=== PATIENT | male | born 1960 | race Caucasian/White ===

== ENCOUNTER 2022-05-12 12:06 | Emergency (ER) | payer OTHER ==
[~2022-05-12] VITALS: Ht 188 cm; Wt 113.4 kg
[2022-05-12 12:07] VITALS: BP_SYST 121
--- NOTE | 2022-05-12 12:31 | NUR ---
DR. PALMA AT BEDSIDE TO ASSESS PT.
--- NOTE | 2022-05-12 12:31 | NUR ---
PT BIBA ACLS FOR C/P, PT GIVEN NITRO SPRAY X2. PT IS AAOX4. PERRL. RESP E/U. ECG PENDING. DISTAL PULSES NORMAL. SKIN INTACT. PT HAS C/O N/V. ABDOMEN SOFT, NONTENDER, NONDISTENDED. IV CATH 18 RAC. SITE WNL. SIDERAILS UP X2.
[2022-05-12 12:35] LABS: BASOPHILS % (AUTO) 0.5 % (0.0-2.0); HEMOGLOBIN 15.2 g/dL (14.0-18.0); LYMPHOCYTES # (AUTO) 0.7 K/uL (1.0-5.5); MEAN CORPUSCULAR HEMOGLOBIN 34 pg (27-31); MEAN CORPUSCULAR HGB CONC 34 % (32-36); MEAN CORPUSCULAR VOLUME 100 fL (79.0-98.0); MONOCYTES # (AUTO) 0.2 K/uL (0.0-1.0); MONOCYTES % (AUTO) 3.2 % (1.7-9.3); NEUTROPHILS # (AUTO) 5.7 K/uL (1.8-7.7); NEUTROPHILS % (AUTO) 85.3 % (40.0-70.0); PLATELET COUNT (AUTO) 161 K/uL (130-430); RED BLOOD CELL COUNT(AUTO) 4.52 MIL/uL (4.2-6.2); WHITE BLOOD COUNT (AUTO) 6.7 K/uL (4.8-10.8)
--- NOTE | 2022-05-12 12:36 | NUR ---
REPORTED TO DR. PALMA THAT PT HAS INCREASING C/P AND SOB. NNOS AT THIS TIME.
[2022-05-12] MEDS ORDERED: MORPHINE 2 MG/ML INJ. SYRINGE IVP ONE (12:45)
[2022-05-12] MEDS ORDERED: ASPIRIN 81 MG TABLET(ECOTRIN) PO ONE (12:45)
[2022-05-12 12:57] LABS: INR 1.1 (0.80-1.20)
--- NOTE | 2022-05-12 12:58 | NUR ---
MOPHINE 2MG IVP GIVEN TO PT FOR C/P 12/04. ASA 81MG PO GIVEN.
[2022-05-12 12:59] LABS: ANION GAP 15 (5-15); CALCIUM 8.4 mg/dL (8.4-11.0); CHLORIDE 97 mmol/L (98-107); GLUCOSE 230 mg/dL (70-99); UREA NITROGEN, BLOOD 19 mg/dL (8-21)
[2022-05-12 13:00] LABS: CREATININE 1.21 mg/dL (0.55-1.30); GFR AFRICAN AMERICAN 78 mL/min (>90)
[2022-05-12 13:04] LABS: ALANINE AMINOTRANSFERASE 35 U/L (12-78); ALBUMIN 3.8 g/dL (3.4-4.8); ASPARTATE AMINOTRANSFERASE 32 U/L (10-37); TOTAL BILIRUBIN 0.7 mg/dL (0.0-1.0)
[2022-05-12] MEDS ORDERED: MORPHINE 4 MG INJ. 4 MG/ML VIAL IVP ONE (15:30)
--- NOTE | 2022-05-12 15:33 | NUR ---
DR. WAITE MADE AWARE PT HAS NEW PVCS, C/O INCREASING C/P. MORPHINE 4MG IVP GIVEN.
--- NOTE | 2022-05-12 16:28 | NUR ---
PT TO TRANSFER TO [facility], ER TO ER TO BE ADMITTED BY DR. CHIN. GAVE REPORT TO CECILIA RN AT [phone]. ETA FOR RETA IS [phone].
[2022-05-12 16:42] VITALS: BP_SYST 157
--- NOTE | 2022-05-12 16:44 | NUR ---
Patient to be transferred to [facility]. Is being transferred due to higher level of care. Receiving facility has accepting physician and available space. ER physician has signed transfer form. Patient or responsible constitution party has agreed to transfer and signed form. Patient belongings inventoried and will be sent with patient. Copy of nursing notes, lab reports, EKG, Physicians Orders and X-rays to be sent with patient. Report called to CECILIA at receiving facility. Receiving physician is DR. RAMOS. [facility] [place] ambulance service TRANSFERRING AT THIS TIME.
== END 2022-05-12 16:44 | disposition short-term general hospital (02) ==
LOC: SED 12:06
DX: I24.9 Acute ischemic heart disease, unspecified (principal); Z88.6 Allergy status to analgesic agent; Z20.822 Contact with and (suspected) exposure to COVID-19
CPT/HCPCS: 99285; 96374; 71045; 87426; 80053; 85025; 85610; 85730; 84484; 36415; 93005; 96376; J2270 ×2